=== PATIENT | female | born 1955 | race Caucasian/White ===

== ENCOUNTER → 2016-06-25 | Outpatient (CLI) | payer OTHER ==
[2016-06-25 11:28] LABS: HEMATOCRIT 43.1 % (37.0-47.0); HEMOGLOBIN 14.4 g/dl (12.5-16.0)
[2016-06-25 11:31] LABS: ADJUSTED CALCIUM 9.1 mg/dL (8.4-10.2); ALBUMIN 4.6 gm/dL (3.5-5.0); BILIRUBIN,TOTAL 0.4 mg/dL (0.0-1.0); CALCIUM 9.6 mg/dL (8.4-10.2); CREATININE, serum 0.69 mg/dL (0.52-1.25); POTASSIUM 4.2 mmol/L (3.4-5.0); TOTAL PROTEIN 7.6 gm/dL (6.4-8.2)
[2016-06-25 12:12] LABS: THYROID STIMULATING HORMONE 6.04 uIU/mL (0.465-4.680)
== END ==
LOC: ZLAB.FHCC 11:04
DX: Z01.89 Encounter for other specified special examinations (principal)

== ENCOUNTER → 2016-09-23 | Outpatient (CLI) | payer OTHER | LOC: COL.LAB 10:03 → ZLAB.FHCC 10:03 | DX: E03.8 Other specified hypothyroidism (principal) ==

== ENCOUNTER → 2017-08-06 | Outpatient (CLI) | payer OTHER ==
[2017-08-06 10:09] LABS: HEMATOCRIT 43.2 % (37.0-47.0); HEMOGLOBIN 14.4 g/dl (12.5-16.0)
[2017-08-06 10:19] LABS: ALBUMIN 4.8 gm/dL (3.5-5.0); BILIRUBIN,TOTAL 0.3 mg/dL (0.0-1.0); CALCIUM 9.4 mg/dL (8.4-10.2); CHOLESTEROL RISK RATIO 4.2; CREATININE, serum 0.69 mg/dL (0.52-1.25); POTASSIUM 3.9 mmol/L (3.4-5.0)
[2017-08-06 10:49] LABS: THYROID STIMULATING HORMONE 3.62 uIU/mL (0.465-4.680)
== END ==
LOC: COL.LAB 09:47
PROVIDERS: Internal Medicine
DX: I10 Essential (primary) hypertension (principal); E03.9 Hypothyroidism, unspecified

== ENCOUNTER 2019-10-28 12:06 | Emergency (ER) | payer SELFPAY ==
[~2019-10-28] VITALS: Ht 157.5 cm; Wt 81.8 kg
[~2019-10-28 12:06] MED LIST: KLONOPIN 0.5MG0.5 MG PO; LOPRESSOR 225 MG/TAB PO; PHENOBARBITAL32.4 MG PO; ZESTRIL 10MG10 MG PO
[2019-10-28 12:13] VITALS: TEMP 98.2
[2019-10-28 13:00] LABS: BASO # 0.1 (0.0-0.2); BASO % 0.5 % (0.0-2.0); EOS # 0.1 (0.0-0.7); GRAN % 76.1 % (42.2-75.2); HEMATOCRIT 46.2 % (37.0-47.0); HEMOGLOBIN 15.3 g/dl (12.5-16.0); LYMPH # 1.5 (1.2-3.4); LYMPH % 16.2 % (20.0-51.0); MEAN CELL VOLUME 88 fl (80.0-100.0); MEAN CORPUSCULAR HEMOGLOBIN 29 pg (27.0-31.0); MEAN CORPUSCULAR HGB CONC 33 g/dl (33.0-37.0); MEAN PLATELET VOLUME 10.4 fl (7.4-10.4); MONO # 0.5 (0.1-0.6); MONO % 5.9 % (1.7-9.3); PLATELET COUNT 218 K/mm3 (130-400); RED BLOOD COUNT 5.26 M/mm3 (4.10-5.30); REDCELL DISTRIBUTION WIDTH-CV 13.7 % (11.5-14.5)
[2019-10-28 13:09] LABS: ALANINE AMINOTRANSFERASE 44 U/L (4-34); ALKALINE PHOSPHATASE 99 U/L (50-136); ANION GAP 9 mmol/L (7-16); AST,SGOT 34 U/L (15-37); BILIRUBIN,TOTAL 0.6 mg/dL (0.0-1.0); BLOOD UREA NITROGEN 11 mg/dL (7-17); CALCIUM 9.8 mg/dL (8.4-10.2); CARBON DIOXIDE 26 mmol/L (22-30); CHLORIDE 102 mmol/L (98-107); CREATININE, serum 0.55 (0.52-1.25); GLUCOSE 111 mg/dL (74-106); SODIUM 137 mmol/L (137-145); TOTAL PROTEIN 8.6 gm/dL (6.4-8.2)
[2019-10-28] MEDS ORDERED: PRINZIDE 25 MG-1 TAB PO (13:14)
[2019-10-28] MEDS ORDERED: NORVASC 5MG5 MG/TAB PO (13:14)
[2019-10-28 13:21] LABS: TROPONIN-I < 0.012 ng/mL (0.000-0.035)
[2019-10-28 16:14] VITALS: BP 149/92; PULSE 96
== END 2019-10-28 16:30 | disposition home or self-care (01) ==
LOC: COL.ER 12:06
PROVIDERS: Emergency Medicine
DX: I10 Essential (primary) hypertension (principal); R00.2 Palpitations; Z79.899 Other long term (current) drug therapy

== ENCOUNTER 2019-12-26 19:34 | Emergency (ER) | payer SELFPAY ==
[~2019-12-26] VITALS: Ht 162.6 cm; Wt 77.3 kg
[~2019-12-26 19:34] MED LIST changes: +NORVASC 5MG5 MG/TAB PO; +PRINZIDE 25 MG-1 TAB PO
[2019-12-26 20:07] LABS: BASO # 0.1 (0.0-0.2); BASO % 0.4 % (0.0-2.0); EOS # 0.2 (0.0-0.7); EOS % 1.5 % (0-4.0); GRAN # 9.3 (1.4-6.5); GRAN % 69.2 % (42.2-75.2); HEMATOCRIT 45.8 % (37.0-47.0); HEMOGLOBIN 15.5 g/dl (12.5-16.0); LYMPH # 2.6 (1.2-3.4); LYMPH % 19.7 % (20.0-51.0); MEAN CELL VOLUME 87 fl (80.0-100.0); MEAN CORPUSCULAR HEMOGLOBIN 30 pg (27.0-31.0); MEAN CORPUSCULAR HGB CONC 34 g/dl (33.0-37.0); MEAN PLATELET VOLUME 10.9 fl (7.4-10.4); MONO # 1.2 (0.1-0.6); MONO % 8.7 % (1.7-9.3); PLATELET COUNT 271 K/mm3 (130-400); RED BLOOD COUNT 5.25 M/mm3 (4.10-5.30); REDCELL DISTRIBUTION WIDTH-CV 13.4 % (11.5-14.5)
[2019-12-26 20:21] LABS: ALBUMIN 4.7 gm/dL (3.5-5.0); BILIRUBIN,TOTAL 0.7 mg/dL (0.0-1.0); CALCIUM 9.7 mg/dL (8.4-10.2); CREATININE, serum 0.83 (0.52-1.25); MAGNESIUM 1.9 mg/dL (1.6-2.3); POTASSIUM 3.7 mmol/L (3.4-5.0); TOTAL PROTEIN 8.4 gm/dL (6.4-8.2)
[2019-12-26 20:32] LABS: TROPONIN-I 0.013 ng/mL (0.000-0.035)
[2019-12-26 20:51] LABS: THYROID STIMULATING HORMONE 1.7 uIU/mL (0.465-4.680)
[2019-12-26] MEDS ORDERED: ASPIRIN 81M81 MG/TA2 PO (21:36)
[2019-12-26 21:44] VITALS: BP 119/79; PULSE 75; TEMP 97.6
== END 2019-12-26 22:09 | disposition home or self-care (01) ==
LOC: COL.ER 19:34
PROVIDERS: Emergency Medicine
DX: I47.1 Supraventricular tachycardia (principal); I10 Essential (primary) hypertension; Z79.82 Long term (current) use of aspirin
CPT/HCPCS: J0153; J7030

== ENCOUNTER 2020-01-05 14:08 | Emergency (ER) | payer SELFPAY ==
[~2020-01-05] VITALS: Ht 157.5 cm; Wt 77.3 kg
[~2020-01-05 14:08] MED LIST changes: +ASPIRIN 81M81 MG/TA2 PO
[2020-01-05 14:13] VITALS: TEMP 97.9
[2020-01-05 14:36] LABS: BASO # 0.1 (0.0-0.2); BASO % 0.6 % (0.0-2.0); EOS # 0.4 (0.0-0.7); EOS % 4.5 % (0-4.0); GRAN # 5.2 (1.4-6.5); GRAN % 61.9 % (42.2-75.2); HEMATOCRIT 42.2 % (37.0-47.0); HEMOGLOBIN 14.1 g/dl (12.5-16.0); LYMPH % 23.8 % (20.0-51.0); MEAN CELL VOLUME 89 fl (80.0-100.0); MEAN CORPUSCULAR HEMOGLOBIN 30 pg (27.0-31.0); MEAN CORPUSCULAR HGB CONC 33 g/dl (33.0-37.0); MEAN PLATELET VOLUME 10.8 fl (7.4-10.4); MONO # 0.7 (0.1-0.6); MONO % 8.5 % (1.7-9.3); PLATELET COUNT 204 K/mm3 (130-400); RED BLOOD COUNT 4.77 M/mm3 (4.10-5.30); REDCELL DISTRIBUTION WIDTH-CV 13.9 % (11.5-14.5)
[2020-01-05 14:47] LABS: ALBUMIN 4.7 gm/dL (3.5-5.0); BILIRUBIN,TOTAL 0.3 mg/dL (0.0-1.0); CALCIUM 9.4 mg/dL (8.4-10.2); CREATININE, serum 0.76 (0.52-1.25); POTASSIUM 3.9 mmol/L (3.4-5.0); TOTAL PROTEIN 8.1 gm/dL (6.4-8.2)
[2020-01-05 15:50] VITALS: BP 164/98; PULSE 83
== END 2020-01-05 15:51 | disposition home or self-care (01) ==
LOC: COL.ER 14:08
PROVIDERS: Emergency Medicine
DX: I47.1 Supraventricular tachycardia (principal); I10 Essential (primary) hypertension; Z79.82 Long term (current) use of aspirin
CPT/HCPCS: J0153; J7030

== ENCOUNTER 2020-02-24 17:20 | Emergency (ER) | payer SELFPAY ==
[~2020-02-24] VITALS: Ht 162.6 cm; Wt 77.3 kg
[2020-02-24 17:24] VITALS: TEMP 97.3
[2020-02-24 17:51] LABS: BASO # 0.1 (0.0-0.2); BASO % 0.3 % (0.0-2.0); EOS # 0.5 (0.0-0.7); GRAN # 11.1 (1.4-6.5); GRAN % 74.9 % (42.2-75.2); HEMATOCRIT 44.7 % (37.0-47.0); HEMOGLOBIN 14.9 g/dl (12.5-16.0); LYMPH # 2.1 (1.2-3.4); LYMPH % 14.2 % (20.0-51.0); MEAN CELL VOLUME 89 fl (80.0-100.0); MEAN CORPUSCULAR HEMOGLOBIN 30 pg (27.0-31.0); MEAN CORPUSCULAR HGB CONC 33 g/dl (33.0-37.0); MEAN PLATELET VOLUME 10.8 fl (7.4-10.4); MONO # 1.1 (0.1-0.6); MONO % 7.1 % (1.7-9.3); PLATELET COUNT 215 K/mm3 (130-400); RED BLOOD COUNT 5.04 M/mm3 (4.10-5.30); REDCELL DISTRIBUTION WIDTH-CV 13.6 % (11.5-14.5)
[2020-02-24 17:56] LABS: CALCIUM 9.8 mg/dL (8.4-10.2); CREATININE, serum 0.77 (0.52-1.25); POTASSIUM 3.2 mmol/L (3.4-5.0)
[2020-02-24] MEDS ORDERED: PRINIVIL20 MG PO (19:22)
[2020-02-24] MEDS ORDERED: K-TAB20 PO (19:23)
[2020-02-24 20:18] VITALS: BP 148/94; PULSE 79
== END 2020-02-24 20:25 | disposition home or self-care (01) ==
LOC: COL.ER 17:20
PROVIDERS: Emergency Medicine
DX: R00.2 Palpitations (principal); I47.1 Supraventricular tachycardia; E87.6 Hypokalemia; Z79.82 Long term (current) use of aspirin
CPT/HCPCS: J3475